=== PATIENT | male | born 1980 ===

== ENCOUNTER 2019-06-12 04:50 | Emergency (ER) | payer MEDICAID, OTHER ==
[~2019-06-12] VITALS: Ht 188 cm; Wt 81.6 kg
[2019-06-12 04:52] VITALS: BP 143/115
[2019-06-12] MEDS ORDERED: cefTRIAXone SOD 1,000 MG VL IM ONE (07:45)
== END 2019-06-12 07:43 ==
LOC: ER 04:50
DX: S01.111A Laceration without foreign body of right eyelid and periocular area, initial encounter (principal); W20.8XXA Other cause of strike by thrown, projected or falling object, initial encounter; Y93.02 Activity, running; Y92.148 Other place in prison as the place of occurrence of the external cause; Y99.8 Other external cause status
CPT/HCPCS: 12011; 70450